=== PATIENT | male | born 1935 | race Two or more races ===

== ENCOUNTER 2017-04-05 03:04 | Inpatient (IN) | payer OTHER, MEDICAID ==
[~2017-04-05] VITALS: Ht 167.6 cm; Wt 96.8 kg
[~2017-04-05 03:04] MED LIST: ALL100T GT; AMLO5TAB2 PO; GEM600T GT; HYDR-4683 PO; LEVO500T21 PO; METF-490 PO; METR500T PO; SULF-35 PO
[2017-04-05] MEDS ORDERED: ACETAMINOPHEN 325 MG TAB PO ONE (03:15)
[2017-04-05 03:55] LABS: Basophils # (auto) 0 uL; Basophils % (auto) 0.4 % (0.0-2.0); Eosinophils # (auto) 0.1 uL; Eosinophils % (auto) 0.6 % (0.0-7.0); Hematocrit 43.6 % (41.0-53.0); Hemoglobin 14.9 g/dL (13.5-17.5); Lymphocytes # (auto) 1.2 uL; Lymphocytes % (auto) 10.4 % (10.0-50.0); Mean Corpuscular Hgb Conc. 34.2 g/dL (32.0-36.0); Mean Corpuscular Volume 93.5 fL (80.0-100.0); Mean Platelet Volume 8.5 fL (6.9-10.8); Monocytes # (auto) 0.8 uL; Monocytes % (auto) 6.7 % (0.0-12.0); Neutrophils # (auto) 9.8 uL; Neutrophils % (auto) 81.9 % (37.0-80.0); Nucleated Red Blood Cells % 0.1 %; Platelet Count (auto) 144 10^3/uL (140-450)
[2017-04-05 04:18] LABS: Albumin 3.3 g/dL (3.4-5.0); BUN/Creatinine Ratio 18.6; Bilirubin, Total 1.7 mg/dL (0.2-1.0); Magnesium 2.3 mg/dL (1.6-2.6); Potassium 3.7 mmol/L (3.5-5.1); Total Protein 8.1 g/dL (6.4-8.2)
[2017-04-05 04:26] LABS: B-Type Natriuretic Peptide 180.14 pg/mL (0-100)
[2017-04-05 04:27] LABS: Temperature: 21.9 C (20.0-25.0)
[2017-04-05] MEDS ORDERED: LORazepam 0.5 MG TAB PO PRN (12:45)
[2017-04-05] MEDS ORDERED: ACETAMINOPHEN 500 MG TAB PO PRN (12:45)
[2017-04-05] MEDS ORDERED: LACTULOSE 20Gm/30ML SOLN PO PRN (12:45)
[2017-04-05] MEDS ORDERED: PROMETHAZINE HCL 25 MG/ML 1ML IV PRN (12:45)
[2017-04-05] MEDS ORDERED: HYDROcodone-ACET 5/325MG TAB PO PRN (12:45)
[2017-04-05] MEDS ORDERED: NITROGLYCERIN 0.4 MG SL TAB SL PRN (12:45)
[2017-04-05] MEDS ORDERED: MORPHINE SULF INJ 2 MG/ML SYRINGE 1ML IV PRN ×2 (12:45)
[2017-04-05] MEDS ORDERED: cefTRIAXone 1GM/10ml IVPUSH 10 ML IV ONE (12:45)
[2017-04-05] MEDS: ENOXAPARIN SOD 40 MG/0.4 ML SYRINGE SC SCH (13:25)
[2017-04-05] MEDS: SODIUM CHLORIDE 0.9% 1,000 ML IV SCH (13:25)
[2017-04-05] MEDS ORDERED: COLCHICINE 0.6 MG CAP PO ONE (15:00)
[2017-04-05 20:45] VITALS: BP 102/49
[2017-04-05 21:45] VITALS: BP 102/49
[2017-04-05] MEDS: COLCHICINE 0.6 MG CAP PO SCH (22:00)
[2017-04-06] MEDS: TEMAZEPAM 15 MG CAP PO PRN ×2 (00:09→22:05)
[2017-04-06] MEDS: SODIUM CHLORIDE 0.9% 1,000 ML IV SCH ×3 (03:30→18:54)
[2017-04-06 05:28] VITALS: BP 116/62
[2017-04-06 06:00] VITALS: BP 108/55
[2017-04-06 06:10] LABS: Basophils # (auto) 0 uL; Basophils % (auto) 0.5 % (0.0-2.0); Eosinophils # (auto) 0.1 uL; Eosinophils % (auto) 1.9 % (0.0-7.0); Hematocrit 40.6 % (41.0-53.0); Hemoglobin 14.1 g/dL (13.5-17.5); Lymphocytes # (auto) 1.1 uL; Lymphocytes % (auto) 18.5 % (10.0-50.0); Mean Corpuscular Hemoglobin 33.2 pg (28.0-32.0); Mean Corpuscular Hgb Conc. 34.7 g/dL (32.0-36.0); Mean Corpuscular Volume 95.7 fL (80.0-100.0); Mean Platelet Volume 8.3 fL (6.9-10.8); Monocytes # (auto) 0.9 uL; Monocytes % (auto) 14.9 % (0.0-12.0); Neutrophils % (auto) 64.2 % (37.0-80.0); Platelet Count (auto) 144 10^3/uL (140-450); Red Cell Distribution Width 14.7 % (11.8-14.3); White Blood Cell 6.2 10^3/uL (4.4-10.8)
[2017-04-06 06:17] LABS: Albumin 2.7 g/dL (3.4-5.0); BUN/Creatinine Ratio 20.9; Calcium 8.9 mg/dL (8.5-10.1)
[2017-04-06 06:20] LABS: Bilirubin, Total 0.9 mg/dL (0.2-1.0); Total Protein 7.4 g/dL (6.4-8.2)
[2017-04-06 08:00] VITALS: BP 108/55
[2017-04-06] MEDS: PANTOPRAZOLE 40 MG TAB PO SCH (10:00)
[2017-04-06] MEDS: COLCHICINE 0.6 MG CAP PO SCH ×2 (10:00→22:04)
[2017-04-06] MEDS: ENOXAPARIN SOD 40 MG/0.4 ML SYRINGE SC SCH (10:01)
[2017-04-06] MEDS: cefTRIAXone 1GM/10ml IVPUSH 10 ML IV SCH (10:02)
[2017-04-06 13:00] VITALS: BP 116/68
[2017-04-06] MEDS: ALLOPURINOL 100 MG TAB PO SCH (14:33)
[2017-04-06] MEDS: amLODIPine BESYLATE 5 MG TAB PO SCH (14:34)
[2017-04-06 14:44] LABS: Urine Bilirubin Negative (Negative); Urine Blood 1+ /uL (Negative); Urine Color Yellow (Yellow); Urine Glucose Normal (Normal); Urine Ketone Negative (Negative); Urine Mucus FEW (None Seen); Urine Nitrite Negative (Negative); Urine RBC 1 /hpf (0 - 3); Urine Squamous Epithelial Cell FEW /hpf (<5); Urine pH 6.5 (5.0-8.0)
[2017-04-06 17:00] VITALS: BP 122/70
[2017-04-06 22:00] VITALS: BP 128/65
[2017-04-07] MEDS: SODIUM CHLORIDE 0.9% 1,000 ML IV SCH ×2 (04:33→14:35)
[2017-04-07 05:00] VITALS: BP 116/62
[2017-04-07 07:30] LABS: Albumin 2.9 g/dL (3.4-5.0); Calcium 9.1 mg/dL (8.5-10.1); Potassium 3.9 mmol/L (3.5-5.1)
[2017-04-07 07:42] LABS: Bilirubin, Total 0.7 mg/dL (0.2-1.0); Total Protein 7.7 g/dL (6.4-8.2)
[2017-04-07 08:00] VITALS: BP 124/68
[2017-04-07 09:24] VITALS: BP 124/68
[2017-04-07] MEDS: PANTOPRAZOLE 40 MG TAB PO SCH (10:58)
[2017-04-07] MEDS: amLODIPine BESYLATE 5 MG TAB PO SCH (10:59)
[2017-04-07] MEDS: COLCHICINE 0.6 MG CAP PO SCH ×2 (10:59→22:55)
[2017-04-07] MEDS: ALLOPURINOL 100 MG TAB PO SCH (10:59)
[2017-04-07] MEDS: ENOXAPARIN SOD 40 MG/0.4 ML SYRINGE SC SCH (10:59)
[2017-04-07] MEDS: cefTRIAXone 1GM/10ml IVPUSH 10 ML IV SCH (11:03)
[2017-04-07 12:54] VITALS: BP 120/61
[2017-04-07 17:46] VITALS: BP 119/56
[2017-04-07 22:00] VITALS: BP 131/65
[2017-04-07] MEDS: TEMAZEPAM 15 MG CAP PO PRN (22:55)
[2017-04-08] MEDS: SODIUM CHLORIDE 0.9% 1,000 ML IV SCH ×3 (00:38→20:33)
[2017-04-08 05:30] VITALS: BP 132/60
[2017-04-08] MEDS: COLCHICINE 0.6 MG CAP PO SCH ×2 (10:38→22:35)
[2017-04-08] MEDS: PANTOPRAZOLE 40 MG TAB PO SCH (10:38)
[2017-04-08] MEDS: ALLOPURINOL 100 MG TAB PO SCH (10:38)
[2017-04-08] MEDS: cefTRIAXone 1GM/10ml IVPUSH 10 ML IV SCH (10:38)
[2017-04-08] MEDS: ENOXAPARIN SOD 40 MG/0.4 ML SYRINGE SC SCH (10:38)
[2017-04-08] MEDS: amLODIPine BESYLATE 5 MG TAB PO SCH (10:39)
[2017-04-08 13:00] VITALS: BP 134/70
[2017-04-08 17:00] VITALS: BP 127/66
[2017-04-08 22:00] VITALS: BP 154/76
[2017-04-09 05:00] VITALS: BP 142/76
[2017-04-09] MEDS: SODIUM CHLORIDE 0.9% 1,000 ML IV SCH (06:53)
[2017-04-09 07:50] VITALS: BP 148/75
[2017-04-09] MEDS: PANTOPRAZOLE 40 MG TAB PO SCH (10:15)
[2017-04-09] MEDS: ALLOPURINOL 100 MG TAB PO SCH (10:15)
[2017-04-09] MEDS: amLODIPine BESYLATE 5 MG TAB PO SCH (10:15)
[2017-04-09] MEDS: COLCHICINE 0.6 MG CAP PO SCH (10:15)
[2017-04-09] MEDS: ENOXAPARIN SOD 40 MG/0.4 ML SYRINGE SC SCH (10:16)
[2017-04-09] MEDS: cefTRIAXone 1GM/10ml IVPUSH 10 ML IV SCH (10:16)
[2017-04-09 11:54] VITALS: BP 138/73
[2017-04-09 12:47] VITALS: BP 138/73
== END 2017-04-09 18:20 | disposition home or self-care (01) | DRG 871 ==
LOC: EDBD 03:04 → ER 03:04 → EDSEX 03:04 → TELE 03:05 → TELE-EAST 21:03
PROVIDERS: ADMIT Internal Medicine; ATTEND Family Medicine
DX: A41.9 Sepsis, unspecified organism (principal); N17.0 Acute kidney failure with tubular necrosis; M62.82 Rhabdomyolysis; N39.0 Urinary tract infection, site not specified; I13.0 Hypertensive heart and chronic kidney disease with heart failure and stage 1 through stage 4 chronic kidney disease, or unspecified chronic kidney disease; K80.20 Calculus of gallbladder without cholecystitis without obstruction; E11.22 Type 2 diabetes mellitus with diabetic chronic kidney disease; N18.3 Chronic kidney disease, stage 3 (moderate); E78.5 Hyperlipidemia, unspecified; I50.9 Heart failure, unspecified; I25.119 Atherosclerotic heart disease of native coronary artery with unspecified angina pectoris; K76.0 Fatty (change of) liver, not elsewhere classified; M10.9 Gout, unspecified; E66.9 Obesity, unspecified; Z51.5 Encounter for palliative care; Z95.0 Presence of cardiac pacemaker; Z79.899 Other long term (current) drug therapy; Z79.84 Long term (current) use of oral hypoglycemic drugs; Z68.34 Body mass index [BMI] 34.0-34.9, adult
CPT/HCPCS: 36415; 71010; 76705; 78226; 78582; 80053; 80307; 81001; 82550; 83605; 83735; 83880; 84484; 84550; 85025; 85379; 85652; 86141; 87040; 87086; 93005; 93970

== ENCOUNTER 2018-01-06 09:54 | Emergency (ER) | payer OTHER, MEDICAID ==
[~2018-01-06] VITALS: Ht 167.6 cm; Wt 94.8 kg
[~2018-01-06 09:54] MED LIST changes: -ALL100T GT; -AMLO5TAB2 PO; +DILT180C88 PO; +FENO1TAB42 PO; +FURO40TA PO; -GEM600T GT; +GLIP-115 PO; -HYDR-4683 PO; -LEVO500T21 PO; +LEVO50TA7 PO; -METF-490 PO; -METR500T PO; -SULF-35 PO
[2018-01-06 10:42] LABS: Basophils # (auto) 0 uL; Basophils % (auto) 0.5 % (0.0-2.0); Eosinophils # (auto) 0.2 uL; Eosinophils % (auto) 2.1 % (0.0-7.0); Hematocrit 47.6 % (41.0-53.0); Hemoglobin 16.2 g/dL (13.5-17.5); Lymphocytes # (auto) 1.8 uL; Lymphocytes % (auto) 22.4 % (10.0-50.0); Mean Corpuscular Hemoglobin 33.1 pg (28.0-32.0); Mean Corpuscular Volume 97.4 fL (80.0-100.0); Monocytes # (auto) 0.5 uL; Monocytes % (auto) 6.7 % (0.0-12.0); Neutrophils # (auto) 5.5 uL; Neutrophils % (auto) 68.3 % (37.0-80.0); Nucleated Red Blood Cells % 0.1 %; Platelet Count (auto) 239 10^3/uL (140-450); Red Blood Cells 4.89 10^6/uL (4.5-5.90)
[2018-01-06 10:59] LABS: Albumin 4.2 g/dL (3.4-5.0); BUN/Creatinine Ratio 15.4; Calcium 9.9 mg/dL (8.5-10.1); Magnesium 3.2 mg/dL (1.6-2.6); Potassium 3.9 mmol/L (3.5-5.1); Total Protein 8.5 g/dL (6.4-8.2)
[2018-01-06 11:14] LABS: Urine Bacteria NONE SEEN /hpf (None Seen); Urine Blood 1+ /uL (Negative); Urine Mucus FEW (None Seen); Urine Specific Gravity 1.016 (1.001-1.035); Urine WBC 2 /hpf (0 - 3)
[2018-01-06 12:42] VITALS: BP 129/91
== END 2018-01-06 12:17 | disposition home or self-care (01) ==
LOC: ER 09:54
DX: N39.0 Urinary tract infection, site not specified (principal); E11.22 Type 2 diabetes mellitus with diabetic chronic kidney disease; I12.9 Hypertensive chronic kidney disease with stage 1 through stage 4 chronic kidney disease, or unspecified chronic kidney disease; N18.9 Chronic kidney disease, unspecified; E78.5 Hyperlipidemia, unspecified; I25.10 Atherosclerotic heart disease of native coronary artery without angina pectoris
CPT/HCPCS: 36415; 80053; 81001; 83735; 84484; 85025; 93005

== ENCOUNTER 2018-01-13 10:15 | Emergency (ER) | payer OTHER, MEDICAID ==
[~2018-01-13] VITALS: Ht 162.6 cm; Wt 94.8 kg
[2018-01-13 13:46] VITALS: BP 123/89
== END 2018-01-13 13:48 | disposition home or self-care (01) ==
LOC: ER 10:15
DX: K59.00 Constipation, unspecified (principal); E11.22 Type 2 diabetes mellitus with diabetic chronic kidney disease; I12.9 Hypertensive chronic kidney disease with stage 1 through stage 4 chronic kidney disease, or unspecified chronic kidney disease; N18.9 Chronic kidney disease, unspecified; E78.5 Hyperlipidemia, unspecified; M10.9 Gout, unspecified; I25.10 Atherosclerotic heart disease of native coronary artery without angina pectoris; Z87.440 Personal history of urinary (tract) infections; Z96.89 Presence of other specified functional implants
CPT/HCPCS: 74018

== ENCOUNTER 2018-10-15 16:36 | Inpatient (IN) | payer OTHER, MEDICAID | END 2018-10-18 18:00 | disposition home or self-care (01) | LOC: ER 16:36 → OVERFLOW 16:37 → WEST WING 21:50 | DX: G93.41 Metabolic encephalopathy (principal); I13.0 Hypertensive heart and chronic kidney disease with heart failure and stage 1 through stage 4 chronic kidney disease, or unspecified chronic kidney disease; I50.22 Chronic systolic (congestive) heart failure; I50.20 Unspecified systolic (congestive) heart failure; E11.649 Type 2 diabetes mellitus with hypoglycemia without coma; I67.2 Cerebral atherosclerosis; E11.22 Type 2 diabetes mellitus with diabetic chronic kidney disease; N18.3 Chronic kidney disease, stage 3 (moderate); E66.9 Obesity, unspecified; Z68.31 Body mass index [BMI] 31.0-31.9, adult ==

== ENCOUNTER 2020-08-29 11:16 | Inpatient (IN) | payer OTHER, MEDICAID ==
[~2020-08-29] VITALS: Ht 172.7 cm; Wt 97.8 kg
[~2020-08-29 11:16] MED LIST changes: +FENO145T27 PO; -FENO1TAB42 PO; +FURO1TAB31 PO; -FURO40TA PO; -GLIP-115 PO; +GLIP5TAB12 PO
[2020-08-29 12:43] LABS: Basophils # (auto) 0 10 ^3/uL (0-0.2); Basophils % (auto) 0.5 % (0.0-2.0); Eosinophils # (auto) 0.2 10 ^3/uL (0-0.8); Eosinophils % (auto) 2.7 % (0.0-7.0); Hematocrit 39.5 % (41.0-53.0); Hemoglobin 13.3 g/dL (13.5-17.5); Lymphocytes # (auto) 1.1 10 ^3/uL (0.4-5.4); Lymphocytes % (auto) 18.3 % (10.0-50.0); Mean Corpuscular Hemoglobin 32.2 pg (28.0-32.0); Mean Corpuscular Hgb Conc. 33.5 g/dL (32.0-36.0); Mean Corpuscular Volume 96.1 fL (80.0-100.0); Monocytes # (auto) 0.6 10 ^3/uL (0-1.3); Monocytes % (auto) 10.1 % (0.0-12.0); Neutrophils # (auto) 4.2 10 ^3/uL (1.6-8.6); Neutrophils % (auto) 68.4 % (37.0-80.0); Nucleated Red Blood Cells % 0.2 %; Platelet Count (auto) 252 10^3/uL (140-450); Red Blood Cells 4.11 10^6/uL (4.5-5.90); Red Cell Distribution Width 13.1 % (11.8-14.3); White Blood Cell 6.1 10^3/uL (4.4-10.8)
[2020-08-29 12:58] LABS: Albumin 3.3 g/dL (3.4-5.0); Anion Gap 8 (5-15); Blood Urea Nitrogen 55 mg/dL (7-18); Calcium 9.4 mg/dL (8.5-10.1); Carbon Dioxide 25 mmol/L (21-32); Chloride 102 mmol/L (98-107); Glucose 67 mg/dL (74-106); Magnesium 2.8 mg/dL (1.6-2.6); Potassium 4.2 mmol/L (3.5-5.1); Sodium 135 mmol/L (136-145)
[2020-08-29 13:04] LABS: Alanine Aminotransferase 28 U/L (16-61); Alkaline Phosphatase 45 U/L (45-117); Aspartate Aminotransferase 55 U/L (15-37); BUN/Creatinine Ratio 20.4; GFR African American 29 mL/min; GFR Non-African American 24 mL/min; Total Protein 7.7 g/dL (6.4-8.2)
[2020-08-29 14:12] LABS: Urine Bacteria NONE SEEN /hpf (None Seen); Urine Blood Negative /uL (Negative); Urine Hyaline Cast FEW /lpf (0 - 2); Urine WBC <1 /hpf (0 - 3)
[2020-08-29] MEDS ORDERED: NITROGLYCERIN 0.4 MG SL TAB SL PRN (16:45)
[2020-08-29] MEDS ORDERED: MORPHINE SULF INJ 2 MG/ML SYRINGE 1ML IV PRN (16:45)
[2020-08-29 21:25] VITALS: BP 121/72
[2020-08-29 22:00] VITALS: BP 121/72
[2020-08-30] MEDS ORDERED: ONDANSETRON HCL 4 MG/2 ML VIAL IV PRN (00:15)
[2020-08-30] MEDS ORDERED: ACETAMINOPHEN 325 MG TAB PO PRN (00:15)
[2020-08-30] MEDS ORDERED: NITROGLYCERIN 0.4 MG SL TAB SL PRN (00:15)
[2020-08-30] MEDS ORDERED: LORazepam 0.5 MG TAB PO PRN (00:15)
[2020-08-30] MEDS ORDERED: DEXTROSE (50%) 50ML SYRG IV PRN (00:15)
[2020-08-30] MEDS ORDERED: DOCUSATE SOD 100 MG CAP PO PRN (00:15)
[2020-08-30] MEDS ORDERED: ALUM & MAG HYDROX-SIMETH LIQ(MAALOX) 30 ML PO PRN (00:15)
[2020-08-30] MEDS ORDERED: MORPHINE SULF INJ 2 MG/ML SYRINGE 1ML IV PRN ×2 (00:15)
[2020-08-30] MEDS ORDERED: HYDROcodone-ACET 5/325MG TAB PO PRN (00:15)
[2020-08-30 02:03] VITALS: BP 121/72
[2020-08-30 05:00] VITALS: BP 141/64
[2020-08-30] MEDS: SODIUM CHLOR 0.9% PF (SALINE LOCK) 10ML VIAL/SYR IV SCH ×2 (05:41→13:52)
[2020-08-30] MEDS: FUROSEMIDE 20 MG/2 ML VIAL IV SCH ×2 (05:41→18:00)
[2020-08-30] MEDS: InsuLIN REG 1unit/0.01ml Soln (100units/ml) SC SCH ×3 (06:26→17:00)
[2020-08-30] MEDS: ACCU-CHEK COMFORT CURVE STRIP VI SCH ×3 (06:26→17:00)
[2020-08-30 06:30] LABS: Basophils # (auto) 0 10 ^3/uL (0-0.2); Basophils % (auto) 0.6 % (0.0-2.0); Eosinophils # (auto) 0.2 10 ^3/uL (0-0.8); Eosinophils % (auto) 2.8 % (0.0-7.0); Hematocrit 39.3 % (41.0-53.0); Hemoglobin 13.6 g/dL (13.5-17.5); Lymphocytes # (auto) 1.2 10 ^3/uL (0.4-5.4); Lymphocytes % (auto) 18.8 % (10.0-50.0); Mean Corpuscular Hemoglobin 33.2 pg (28.0-32.0); Mean Corpuscular Hgb Conc. 34.7 g/dL (32.0-36.0); Mean Corpuscular Volume 95.5 fL (80.0-100.0); Monocytes # (auto) 0.6 10 ^3/uL (0-1.3); Monocytes % (auto) 9.4 % (0.0-12.0); Neutrophils # (auto) 4.3 10 ^3/uL (1.6-8.6); Neutrophils % (auto) 68.4 % (37.0-80.0); Nucleated Red Blood Cells % 0.1 %; Platelet Count (auto) 267 10^3/uL (140-450); Red Blood Cells 4.11 10^6/uL (4.5-5.90); Red Cell Distribution Width 13.1 % (11.8-14.3); White Blood Cell 6.3 10^3/uL (4.4-10.8)
[2020-08-30 06:37] LABS: INR 1.14 (0.9-1.15)
[2020-08-30 06:45] LABS: Chloride 104 mmol/L (98-107); Potassium 4.1 mmol/L (3.5-5.1); Sodium 136 mmol/L (136-145)
[2020-08-30 06:57] LABS: Alanine Aminotransferase 33 U/L (16-61); Albumin 3.1 g/dL (3.4-5.0); Alkaline Phosphatase 52 U/L (45-117); Anion Gap 9 (5-15); Aspartate Aminotransferase 64 U/L (15-37); BUN/Creatinine Ratio 23.7; Bilirubin, Total 2.9 mg/dL (0.2-1.0); Blood Urea Nitrogen 53 mg/dL (7-18); Carbon Dioxide 23 mmol/L (21-32); GFR African American 36 mL/min; GFR Non-African American 30 mL/min; Glucose 98 mg/dL (74-106); Magnesium 3.1 mg/dL (1.6-2.6); Phosphorus 3.1 mg/dL (2.5-4.90); Total Protein 7.7 g/dL (6.4-8.2)
[2020-08-30 06:59] LABS: Cholesterol 116 mg/dL (< 200); HDL Cholesterol 24 mg/dL (40-59); LDL Cholesterol 84 mg/dL (< 100); Triglycerides 132 mg/dL (< 150)
[2020-08-30] MEDS ORDERED: LEVOTHYROXINE SODIUM 50 MCG TAB PO SCH (07:00)
[2020-08-30 07:05] LABS: Urine Bacteria NONE SEEN /hpf (None Seen); Urine Blood 1+ /uL (Negative); Urine Specific Gravity 1.012 (1.001-1.035); Urine WBC <1 /hpf (0 - 3)
[2020-08-30 07:30] LABS: Alcohol, Urine < 3.0 mg/dL (0-10); Amphetamine Screen, Urine NEGATIVE (NEGATIVE); Barbiturate Scree,Urine NEGATIVE (NEGATIVE); Benzodiazephine Screen, Urine NEGATIVE (NEGATIVE); Cannabinoid Screen, Urine NEGATIVE (NEGATIVE); Cocaine Screen, Urine NEGATIVE (NEGATIVE); Opiate Scree,Urine POSITIVE (NEGATIVE); Phencyclidine Screen, Urine NEGATIVE (NEGATIVE)
[2020-08-30 09:00] VITALS: BP 125/63
[2020-08-30] MEDS ORDERED: dilTIAZem HCL 180MG ER CAP PO SCH (10:00)
[2020-08-30] MEDS ORDERED: DAPTOmycin 500 MG in SODIUM CHL 0.9% 50 ML IV SCH (10:00)
[2020-08-30] MEDS ORDERED: ASPirin 81 mg TAB PO SCH (10:00)
[2020-08-30] MEDS ORDERED: ENOXAPARIN SOD 30 MG/0.3 ML SYRINGE SC SCH (10:00)
[2020-08-30 13:00] VITALS: BP 125/72
[2020-08-30 14:39] VITALS: BP 125/63
[2020-08-30 17:00] VITALS: BP 148/65
[2020-08-30] MEDS ORDERED: ATORVASTATIN 20 MG TAB PO SCH (22:00)
[2020-08-30] MEDS ORDERED: InsuLIN REG 1unit/0.01ml Soln (100units/ml) SC SCH (22:00)
== END 2020-08-30 18:10 | disposition home or self-care (01) | DRG 553 ==
LOC: ER 11:16 → TELE 16:33 → TELE-WESTW 21:26
PROVIDERS: ADMIT Hospitalist; ATTEND Internal Medicine
DX: M19.031 Primary osteoarthritis, right wrist (principal); N17.0 Acute kidney failure with tubular necrosis; E44.1 Mild protein-calorie malnutrition; I13.0 Hypertensive heart and chronic kidney disease with heart failure and stage 1 through stage 4 chronic kidney disease, or unspecified chronic kidney disease; N18.4 Chronic kidney disease, stage 4 (severe); R53.1 Weakness; M79.89 Other specified soft tissue disorders; I50.9 Heart failure, unspecified; E66.9 Obesity, unspecified; E03.9 Hypothyroidism, unspecified; E11.40 Type 2 diabetes mellitus with diabetic neuropathy, unspecified; Z20.822 Contact with and (suspected) exposure to COVID-19; E11.649 Type 2 diabetes mellitus with hypoglycemia without coma; E78.5 Hyperlipidemia, unspecified; E86.0 Dehydration; E11.22 Type 2 diabetes mellitus with diabetic chronic kidney disease; Z68.32 Body mass index [BMI] 32.0-32.9, adult; Z95.0 Presence of cardiac pacemaker
CPT/HCPCS: 36415; 71045; 73200; 80053; 80061; 80307; 81001; 82306; 82728; 82962; 83036; 83516; 83735; 83880; 84100; 84443; 84484; 84550; 85025; 85610; 85652; 85730; 86141; 86225; 86235; 87040; 87086; 87426; 93005; G0378; J1815

== ENCOUNTER 2020-09-01 10:52 | Inpatient (IN) | payer OTHER, MEDICAID ==
[~2020-09-01] VITALS: Ht 172.7 cm; Wt 92.5 kg
[~2020-09-01 10:52] MED LIST changes: -FURO1TAB31 PO; -GLIP5TAB12 PO
[2020-09-01 11:31] LABS: Hematocrit 37.5 % (41.0-53.0); Hemoglobin 12.6 g/dL (13.5-17.5); Mean Corpuscular Hemoglobin 32.5 pg (28.0-32.0); Mean Corpuscular Hgb Conc. 33.7 g/dL (32.0-36.0); Mean Corpuscular Volume 96.5 fL (80.0-100.0); Platelet Count (auto) 313 10^3/uL (140-450); Red Blood Cells 3.89 10^6/uL (4.5-5.90); Red Cell Distribution Width 13.3 % (11.8-14.3)
[2020-09-01 11:33] LABS: Basophils % (manual) 0 (0.0-2.0); Blast Cells 0; Metamyelocytes % 0; Myelocytes % 0; Promyelocytes % 0; Reactive Lymphocytes 0
[2020-09-01 11:44] LABS: Albumin 2.8 g/dL (3.4-5.0); Magnesium 2.7 mg/dL (1.6-2.6); Potassium 4.2 mmol/L (3.5-5.1)
[2020-09-01 11:47] LABS: BUN/Creatinine Ratio 17.6; Bilirubin, Total 4.5 mg/dL (0.2-1.0); Total Protein 7.6 g/dL (6.4-8.2)
[2020-09-01 12:03] LABS: Band Neutrophils % (manual) 12; Eosinophils % (manual) 1 (0-7); Lymphocytes % (manual) 26 (10.0-50.0); Monocytes % (manual) 10 (0-12)
[2020-09-01] MEDS ORDERED: SODIUM CHLORIDE 0.9% 2,000 ML IV ONE (12:30)
[2020-09-01] MEDS ORDERED: NOREPINEPHRINE 8 MG/250ML KIT 250 ML IV SCH (13:45)
[2020-09-01] MEDS ORDERED: NITROGLYCERIN 0.4 MG SL TAB SL PRN (14:15)
[2020-09-01] MEDS ORDERED: COLCHICINE 0.6 MG CAP PO ONE (14:15)
[2020-09-01] MEDS ORDERED: DEXTROSE (50%) 50ML SYRG IV PRN (14:15)
[2020-09-01] MEDS ORDERED: DOCUSATE CALCIUM 240 MG CAP PO PRN (14:15)
[2020-09-01] MEDS ORDERED: ACETAMINOPHEN 500 MG TAB PO PRN (14:15)
[2020-09-01] MEDS ORDERED: MORPHINE SULF INJ 2 MG/ML SYRINGE 1ML IV PRN ×2 (14:15)
[2020-09-01] MEDS ORDERED: ONDANSETRON HCL 4 MG/2 ML VIAL IV PRN (14:15)
[2020-09-01] MEDS ORDERED: SODIUM CHLORIDE 0.9% 500 ML IV ONE (14:30)
[2020-09-01] MEDS ORDERED: LORazepam 2MG/ML-1ML VIAL IV ONE (14:45)
[2020-09-01 16:25] LABS: Urine Bacteria FEW /hpf (None Seen); Urine Blood 1+ /uL (Negative); Urine Hyaline Cast FEW /lpf (0 - 2); Urine Specific Gravity 1.016 (1.001-1.035); Urine WBC 3 /hpf (0 - 3)
[2020-09-01] MEDS: InsuLIN REG 1unit/0.01ml Soln (100units/ml) SC SCH ×2 (17:54→23:53)
[2020-09-01] MEDS: ACCU-CHEK COMFORT CURVE STRIP VI SCH ×2 (17:54→23:53)
[2020-09-01] MEDS: INSULIN LANTUS (GLARGINE) 1 /0.01ml (100units/ml) SC SCH (23:40)
[2020-09-02] MEDS ORDERED: ACETAMINOPHEN 650 MG RECT SUPP PR ONE (00:15)
[2020-09-02 04:44] LABS: Basophils # (auto) 0.1 10 ^3/uL (0-0.2); Basophils % (auto) 0.7 % (0.0-2.0); Eosinophils # (auto) 0.2 10 ^3/uL (0-0.8); Eosinophils % (auto) 2.4 % (0.0-7.0); Hematocrit 39.8 % (41.0-53.0); Hemoglobin 13.8 g/dL (13.5-17.5); Lymphocytes # (auto) 1.7 10 ^3/uL (0.4-5.4); Lymphocytes % (auto) 18.8 % (10.0-50.0); Mean Corpuscular Hemoglobin 33.7 pg (28.0-32.0); Mean Corpuscular Hgb Conc. 34.8 g/dL (32.0-36.0); Mean Corpuscular Volume 96.9 fL (80.0-100.0); Monocytes # (auto) 0.8 10 ^3/uL (0-1.3); Monocytes % (auto) 8.6 % (0.0-12.0); Neutrophils # (auto) 6.3 10 ^3/uL (1.6-8.6); Neutrophils % (auto) 69.5 % (37.0-80.0); Nucleated Red Blood Cells % 0.2 %; Platelet Count (auto) 308 10^3/uL (140-450); Red Blood Cells 4.11 10^6/uL (4.5-5.90); Red Cell Distribution Width 13.6 % (11.8-14.3)
[2020-09-02 04:56] LABS: INR 1.34 (0.9-1.15)
[2020-09-02 05:04] LABS: Calcium 9.9 mg/dL (8.5-10.1); Potassium 4.7 mmol/L (3.5-5.1)
[2020-09-02 05:08] LABS: BUN/Creatinine Ratio 18.1; Total Protein 7.8 g/dL (6.4-8.2)
[2020-09-02 05:32] LABS: Albumin 2.3 g/dL (3.4-5.0)
[2020-09-02] MEDS: InsuLIN REG 1unit/0.01ml Soln (100units/ml) SC SCH ×3 (06:00→18:00)
[2020-09-02] MEDS: ACCU-CHEK COMFORT CURVE STRIP VI SCH ×3 (06:00→18:09)
[2020-09-02] MEDS: LEVOTHYROXINE SODIUM 50 MCG TAB PO SCH (07:00)
[2020-09-02] MEDS: PANTOPRAZOLE 40 MG TAB PO SCH (10:23)
[2020-09-02] MEDS: ALLOPURINOL 100 MG TAB PO SCH (10:24)
[2020-09-02] MEDS ORDERED: predniSONE 20 MG TAB PO ONE (12:15)
[2020-09-02] MEDS: CEFEPIME 1 GM in SODIUM CHL 0.9% 50 ML IV SCH (14:00)
[2020-09-02] MEDS: SODIUM CHLORIDE 0.9% 1,000 ML IV SCH (16:21)
[2020-09-02] MEDS: LINEZOLID 600MG/300ML 300 ML IV SCH (18:09)
[2020-09-02] MEDS ORDERED: HYDR-4902 PO (18:47)
[2020-09-02] MEDS ORDERED: CHOL100039 PO (18:47)
[2020-09-02 22:00] VITALS: BP 112/66
[2020-09-02] MEDS: INSULIN LANTUS (GLARGINE) 1 /0.01ml (100units/ml) SC SCH (22:12)
[2020-09-03] MEDS: ACCU-CHEK COMFORT CURVE STRIP VI SCH ×4 (00:50→17:13)
[2020-09-03] MEDS: InsuLIN REG 1unit/0.01ml Soln (100units/ml) SC SCH ×5 (01:11→17:14)
[2020-09-03 05:12] VITALS: BP 123/68
[2020-09-03] MEDS: LINEZOLID 600MG/300ML 300 ML IV SCH (05:55)
[2020-09-03] MEDS: LEVOTHYROXINE SODIUM 50 MCG TAB PO SCH (05:55)
[2020-09-03 06:58] LABS: Basophils # (auto) 0 10 ^3/uL (0-0.2); Basophils % (auto) 0.2 % (0.0-2.0); Eosinophils # (auto) 0 10 ^3/uL (0-0.8); Hematocrit 39.4 % (41.0-53.0); Hemoglobin 13.4 g/dL (13.5-17.5); Lymphocytes # (auto) 0.7 10 ^3/uL (0.4-5.4); Lymphocytes % (auto) 7.6 % (10.0-50.0); Mean Corpuscular Hemoglobin 33.1 pg (28.0-32.0); Mean Corpuscular Volume 97.2 fL (80.0-100.0); Monocytes # (auto) 0.3 10 ^3/uL (0-1.3); Monocytes % (auto) 2.8 % (0.0-12.0); Neutrophils % (auto) 89.4 % (37.0-80.0); Nucleated Red Blood Cells % 0.1 %; Platelet Count (auto) 333 10^3/uL (140-450); Red Blood Cells 4.05 10^6/uL (4.5-5.90); Red Cell Distribution Width 13.7 % (11.8-14.3)
[2020-09-03 07:18] LABS: Potassium 4.4 mmol/L (3.5-5.1)
[2020-09-03 07:28] LABS: Albumin 2.4 g/dL (3.4-5.0); BUN/Creatinine Ratio 25.7; Bilirubin, Total 1.8 mg/dL (0.2-1.0); Calcium 10.5 mg/dL (8.5-10.1); Total Protein 7.8 g/dL (6.4-8.2)
[2020-09-03 09:00] VITALS: BP 110/56
[2020-09-03] MEDS: SODIUM CHLORIDE 0.9% 1,000 ML IV SCH (09:27)
[2020-09-03] MEDS: PANTOPRAZOLE 40 MG TAB PO SCH (09:28)
[2020-09-03] MEDS: ALLOPURINOL 100 MG TAB PO SCH (09:28)
[2020-09-03] MEDS ORDERED: predniSONE 20 MG TAB PO SCH (10:00)
[2020-09-03 13:00] VITALS: BP 111/54
[2020-09-03] MEDS ORDERED: predniSONE 20 MG TAB PO ONE (13:15)
[2020-09-03] MEDS ORDERED: INDOMETHACIN 25 MG CAP PO SCH ×2 (14:00→14:30)
[2020-09-03] MEDS: CEFEPIME 1 GM in SODIUM CHL 0.9% 50 ML IV SCH (14:03)
[2020-09-03 16:35] VITALS: BP 115/60
[2020-09-03 22:00] VITALS: BP 121/58
[2020-09-03] MEDS: DOXYCYCLINE 100 MG TAB/CAP PO SCH (22:50)
[2020-09-03] MEDS: INSULIN LANTUS (GLARGINE) 1 /0.01ml (100units/ml) SC SCH (22:50)
[2020-09-04] MEDS: ACCU-CHEK COMFORT CURVE STRIP VI SCH ×4 (00:29→17:43)
[2020-09-04] MEDS: InsuLIN REG 1unit/0.01ml Soln (100units/ml) SC SCH ×4 (00:35→17:42)
[2020-09-04 05:00] VITALS: BP 128/72
[2020-09-04] MEDS: LEVOTHYROXINE SODIUM 50 MCG TAB PO SCH (06:38)
[2020-09-04 07:27] LABS: Basophils # (auto) 0 10 ^3/uL (0-0.2); Basophils % (auto) 0.7 % (0.0-2.0); Eosinophils # (auto) 0.1 10 ^3/uL (0-0.8); Eosinophils % (auto) 1.5 % (0.0-7.0); Hematocrit 37.8 % (41.0-53.0); Hemoglobin 13.1 g/dL (13.5-17.5); Lymphocytes # (auto) 1.3 10 ^3/uL (0.4-5.4); Lymphocytes % (auto) 18.5 % (10.0-50.0); Mean Corpuscular Hemoglobin 33.3 pg (28.0-32.0); Mean Corpuscular Hgb Conc. 34.7 g/dL (32.0-36.0); Mean Corpuscular Volume 95.9 fL (80.0-100.0); Monocytes # (auto) 0.4 10 ^3/uL (0-1.3); Monocytes % (auto) 5.1 % (0.0-12.0); Neutrophils # (auto) 5.2 10 ^3/uL (1.6-8.6); Neutrophils % (auto) 74.2 % (37.0-80.0); Platelet Count (auto) 345 10^3/uL (140-450); Red Blood Cells 3.94 10^6/uL (4.5-5.90); Red Cell Distribution Width 13.4 % (11.8-14.3); White Blood Cell 6.9 10^3/uL (4.4-10.8)
[2020-09-04 07:46] LABS: Albumin 2.3 g/dL (3.4-5.0); Calcium 10.6 mg/dL (8.5-10.1); Potassium 4.2 mmol/L (3.5-5.1)
[2020-09-04 07:50] LABS: Bilirubin, Total 1.2 mg/dL (0.2-1.0); Total Protein 7.4 g/dL (6.4-8.2)
[2020-09-04 09:00] VITALS: BP 108/65
[2020-09-04] MEDS: predniSONE 20 MG TAB PO SCH (09:54)
[2020-09-04] MEDS: DOXYCYCLINE 100 MG TAB/CAP PO SCH (09:54)
[2020-09-04] MEDS: ALLOPURINOL 100 MG TAB PO SCH (09:54)
[2020-09-04] MEDS: PANTOPRAZOLE 40 MG TAB PO SCH (09:54)
[2020-09-04 13:00] VITALS: BP 143/75
[2020-09-04] MEDS: CEFEPIME 1 GM in SODIUM CHL 0.9% 50 ML IV SCH (14:34)
[2020-09-04 17:00] VITALS: BP 147/72
[2020-09-04] MEDS: INSULIN LANTUS (GLARGINE) 1 /0.01ml (100units/ml) SC SCH (22:04)
[2020-09-04 22:08] VITALS: BP 145/72
[2020-09-05] MEDS: ACCU-CHEK COMFORT CURVE STRIP VI SCH ×4 (00:11→16:36)
[2020-09-05] MEDS: InsuLIN REG 1unit/0.01ml Soln (100units/ml) SC SCH ×4 (00:12→17:15)
[2020-09-05 04:48] VITALS: BP 140/74
[2020-09-05 06:05] LABS: Basophils # (auto) 0 10 ^3/uL (0-0.2); Basophils % (auto) 0.1 % (0.0-2.0); Eosinophils # (auto) 0 10 ^3/uL (0-0.8); Eosinophils % (auto) 0.1 % (0.0-7.0); Hematocrit 38.4 % (41.0-53.0); Hemoglobin 13.5 g/dL (13.5-17.5); Lymphocytes # (auto) 1.3 10 ^3/uL (0.4-5.4); Lymphocytes % (auto) 16.7 % (10.0-50.0); Mean Corpuscular Hemoglobin 33.5 pg (28.0-32.0); Mean Corpuscular Hgb Conc. 35.2 g/dL (32.0-36.0); Mean Corpuscular Volume 95.2 fL (80.0-100.0); Monocytes # (auto) 0.4 10 ^3/uL (0-1.3); Monocytes % (auto) 5.4 % (0.0-12.0); Neutrophils # (auto) 5.9 10 ^3/uL (1.6-8.6); Neutrophils % (auto) 77.7 % (37.0-80.0); Platelet Count (auto) 370 10^3/uL (140-450); Red Blood Cells 4.04 10^6/uL (4.5-5.90); Red Cell Distribution Width 13.4 % (11.8-14.3); White Blood Cell 7.5 10^3/uL (4.4-10.8)
[2020-09-05 06:18] LABS: Albumin 2.4 g/dL (3.4-5.0); Calcium 10.5 mg/dL (8.5-10.1); Potassium 4.4 mmol/L (3.5-5.1)
[2020-09-05 06:23] LABS: BUN/Creatinine Ratio 32.7; Bilirubin, Total 1.1 mg/dL (0.2-1.0); Total Protein 7.5 g/dL (6.4-8.2); Uric Acid 8.7 mg/dL (3.5-7.2)
[2020-09-05] MEDS: LEVOTHYROXINE SODIUM 50 MCG TAB PO SCH (06:26)
[2020-09-05 08:00] VITALS: BP 145/74
[2020-09-05 08:58] VITALS: BP 145/74
[2020-09-05 10:00] LABS: Hepatitis B Surface Antibody Negative
[2020-09-05 10:31] LABS: Hepatitis A Total Antibody Positive
[2020-09-05] MEDS: PANTOPRAZOLE 40 MG TAB PO SCH (10:55)
[2020-09-05] MEDS: predniSONE 20 MG TAB PO SCH (10:55)
[2020-09-05] MEDS: ALLOPURINOL 100 MG TAB PO SCH (10:55)
[2020-09-05] MEDS: amLODIPine BESYLATE 5 MG TAB PO SCH (11:01)
[2020-09-05 12:36] LABS: Hepatitis B Core Total AB Negative
[2020-09-05 12:37] LABS: Hepatitis B Surface Antigen Negative (Negative); Hepatitis C Antibody Negative (Negative)
[2020-09-05 12:41] VITALS: BP 122/69
[2020-09-05 17:09] VITALS: BP 145/78
[2020-09-05 22:00] VITALS: BP 155/79
[2020-09-05] MEDS: INSULIN LANTUS (GLARGINE) 1 /0.01ml (100units/ml) SC SCH (22:36)
[2020-09-06] MEDS: InsuLIN REG 1unit/0.01ml Soln (100units/ml) SC SCH ×5 (00:08→23:37)
[2020-09-06] MEDS: ACCU-CHEK COMFORT CURVE STRIP VI SCH ×5 (00:12→23:36)
[2020-09-06 05:00] VITALS: BP 149/79
[2020-09-06] MEDS: LEVOTHYROXINE SODIUM 50 MCG TAB PO SCH ×2 (06:20→06:22)
[2020-09-06 08:36] VITALS: BP 144/79
[2020-09-06] MEDS: amLODIPine BESYLATE 5 MG TAB PO SCH (09:47)
[2020-09-06] MEDS: predniSONE 20 MG TAB PO SCH (09:47)
[2020-09-06] MEDS: PANTOPRAZOLE 40 MG TAB PO SCH (09:48)
[2020-09-06] MEDS: ALLOPURINOL 100 MG TAB PO SCH (09:48)
[2020-09-06 10:13] LABS: Hematocrit 42.6 % (41.0-53.0); Hemoglobin 14.6 g/dL (13.5-17.5); Mean Corpuscular Hgb Conc. 34.4 g/dL (32.0-36.0); Platelet Count (auto) 404 10^3/uL (140-450); Red Blood Cells 4.44 10^6/uL (4.5-5.90); Red Cell Distribution Width 13.5 % (11.8-14.3); White Blood Cell 10.7 10^3/uL (4.4-10.8)
[2020-09-06 10:17] LABS: Basophils % (manual) 0 (0.0-2.0); Blast Cells 0; Eosinophils % (manual) 0 (0-7); Metamyelocytes % 0; Myelocytes % 0; Promyelocytes % 0; Reactive Lymphocytes 0
[2020-09-06 10:55] LABS: Potassium 4.4 mmol/L (3.5-5.1); Sodium 145 mmol/L (136-145)
[2020-09-06 10:56] LABS: Alanine Aminotransferase 69 U/L (16-61); Albumin 2.6 g/dL (3.4-5.0); Alkaline Phosphatase 54 U/L (45-117); Anion Gap 6 (5-15); Aspartate Aminotransferase 62 U/L (15-37); BUN/Creatinine Ratio 35.3; Bilirubin, Total 1.4 mg/dL (0.2-1.0); Blood Urea Nitrogen 61 mg/dL (7-18); Carbon Dioxide 25 mmol/L (21-32); Chloride 114 mmol/L (98-107); GFR African American 48 mL/min; GFR Non-African American 40 mL/min; Glucose 94 mg/dL (74-106); Total Protein 7.9 g/dL (6.4-8.2)
[2020-09-06] MEDS ORDERED: SOD CHL 0.45% 1,000 ML IV ONE (12:00)
[2020-09-06 12:37] LABS: Band Neutrophils % (manual) 9; Lymphocytes % (manual) 20 (10.0-50.0); Monocytes % (manual) 5 (0-12)
[2020-09-06 17:00] VITALS: BP 144/74
[2020-09-06] MEDS: INSULIN LANTUS (GLARGINE) 1 /0.01ml (100units/ml) SC SCH (21:48)
[2020-09-06 22:00] VITALS: BP 149/71
[2020-09-07 05:00] VITALS: BP 151/81
[2020-09-07] MEDS: InsuLIN REG 1unit/0.01ml Soln (100units/ml) SC SCH ×3 (06:00→18:00)
[2020-09-07] MEDS: LEVOTHYROXINE SODIUM 50 MCG TAB PO SCH (06:21)
[2020-09-07] MEDS: ACCU-CHEK COMFORT CURVE STRIP VI SCH ×3 (06:21→18:00)
[2020-09-07 06:39] LABS: Hematocrit 40.5 % (41.0-53.0); Mean Corpuscular Hemoglobin 33.1 pg (28.0-32.0); Mean Corpuscular Hgb Conc. 34.5 g/dL (32.0-36.0); Platelet Count (auto) 386 10^3/uL (140-450); Red Blood Cells 4.22 10^6/uL (4.5-5.90); Red Cell Distribution Width 13.6 % (11.8-14.3); White Blood Cell 11.1 10^3/uL (4.4-10.8)
[2020-09-07 06:56] LABS: Albumin 2.4 g/dL (3.4-5.0); Calcium 10.5 mg/dL (8.5-10.1); Potassium 4.2 mmol/L (3.5-5.1)
[2020-09-07 07:01] LABS: BUN/Creatinine Ratio 35.3; Bilirubin, Total 1.1 mg/dL (0.2-1.0); Total Protein 7.2 g/dL (6.4-8.2)
[2020-09-07 07:04] LABS: Basophils % (manual) 0 (0.0-2.0); Blast Cells 0; Myelocytes % 0; Promyelocytes % 0; Reactive Lymphocytes 0
[2020-09-07 07:36] LABS: Band Neutrophils % (manual) 1; Eosinophils % (manual) 1 (0-7); Lymphocytes % (manual) 19 (10.0-50.0); Metamyelocytes % 1; Monocytes % (manual) 5 (0-12)
[2020-09-07 09:00] VITALS: BP 142/70
[2020-09-07] MEDS: amLODIPine BESYLATE 5 MG TAB PO SCH (10:14)
[2020-09-07] MEDS: predniSONE 20 MG TAB PO SCH (10:14)
[2020-09-07] MEDS: PANTOPRAZOLE 40 MG TAB PO SCH (10:14)
[2020-09-07] MEDS: ALLOPURINOL 100 MG TAB PO SCH (10:15)
[2020-09-07 13:00] VITALS: BP 121/63
[2020-09-07] MEDS ORDERED: AML5T PO (15:11)
[2020-09-07] MEDS ORDERED: ALL100T PO (15:11)
[2020-09-07 16:19] VITALS: BP 121/63
[2020-09-07 17:00] VITALS: BP 139/71
== END 2020-09-07 20:35 | DRG 70 ==
LOC: ER 10:52 → EDBD 10:52 → EDUNIT# 10:52 → ICU WEST 14:09 → TELE-EAST 17:37 → TELE 17:52 → TELE-EAST 09-02 17:45
PROVIDERS: ADMIT Family Medicine; ATTEND Internal Medicine
PROC: 05HB33Z Insertion of Infusion Device into Right Basilic Vein, Percutaneous Approach (ICD-10-PCS; principal; 2020-09-01)
PROC: B54MZZA Ultrasonography of Right Upper Extremity Veins, Guidance (ICD-10-PCS; 2020-09-01)
DX: G93.41 Metabolic encephalopathy (principal); N17.0 Acute kidney failure with tubular necrosis; N18.4 Chronic kidney disease, stage 4 (severe); E44.0 Moderate protein-calorie malnutrition; N39.0 Urinary tract infection, site not specified; I50.42 Chronic combined systolic (congestive) and diastolic (congestive) heart failure; I13.0 Hypertensive heart and chronic kidney disease with heart failure and stage 1 through stage 4 chronic kidney disease, or unspecified chronic kidney disease; M10.9 Gout, unspecified; Z66 Do not resuscitate; E11.65 Type 2 diabetes mellitus with hyperglycemia; E03.9 Hypothyroidism, unspecified; E66.9 Obesity, unspecified; E78.5 Hyperlipidemia, unspecified; Z20.822 Contact with and (suspected) exposure to COVID-19; E83.52 Hypercalcemia; E11.22 Type 2 diabetes mellitus with diabetic chronic kidney disease; Z68.31 Body mass index [BMI] 31.0-31.9, adult
CPT/HCPCS: 36415; 70450; 71045; 73560; 73700; 74176; 76705; 78226; 80053; 81001; 82533; 82962; 83735; 83880; 84443; 84550; 85007; 85025; 85027; 85610; 85652; 86704; 86706; 86708; 86803; 87040; 87081; 87086; 87205; 87340; 87426; 89051; 89060; 93005; 93306; 96365; 96366; 96375; 97110; 97530; 99291; G0378; J1815